=== PATIENT | female | born 1990 | race African-American/Black ===

== ENCOUNTER 2017-03-31 12:02 | Emergency (ER) | payer SELFPAY ==
[~2017-03-31] VITALS: Ht 182.9 cm; Wt 90.0 kg
[~2017-03-31 12:02] MED LIST: ERYT500 PO; LORT5TAB PO; Z.0.NO CURRENT MEDS
[2017-03-31 12:05] VITALS: BP 131/89; PULSE 100; RESP 14; TEMP 98.1; O2SAT 99
[2017-03-31] MEDS ORDERED: SODIUM CHLOR 0.9% 1000 ML INJ 1,000 ML IV SCH (12:21)
--- NOTE | 2017-03-31 12:21 | PD ---
HPI Chief Complaint: Back/ Neck Pain or Injury Time Seen by Provider: 12:12 Travel History International Travel<30 days: No Contact w/Intl Traveler<30days: No Traveled to known affect area: No History of Present Illness HPI 26-year-old female presents to the emergency Department with complaint of low back pain 4 days with worsening. That she woke up with the pain. Denies injury. Denies history of low back pain. Denies IV drug use or cancer. Denies fever, vomiting. Denies encopresis, incontinence, saddle anesthesias. Denies paresthesias, loss of sensation, decreased range of motion, decreased strength to bilateral lower extremities. Denies radiation of pain. Pain is worse with sitting and movement. Better with standing. Rates pain 10/10. No known relieving factors. Has not taken any medication or tried any treatments to alleviate her symptoms. Has a primary care provider but does not know the name. Denies significant past medical history. Allergies to penicillin. Has no other medical complaints. No other modifying factors or associated signs and symptoms. PFSH Past Medical History Medical History: Denies Significant Hx Asthma: Yes (HAS NOT HAD AN EXACERBATION SINCE HS) Diminished Hearing: No ?: Not LMP: 04/07 : 0 Past Surgical History Surgical History: No Previous Surgery Social History Alcohol Use: No Tobacco Use: Yes (1 PPD X 7 YRS) Substance Use: No Allergies-Medications (Allergen,Severity, Reaction): Coded Allergies: penicillin G (Unverified Allergy, Severe, CHILDHOOD , DOESNT REMEMBER, 01/05) Reported Meds & Prescriptions Reported Meds & Active Scripts Active Lortab 5/500 (Acetaminophen/Hydrocodone Bitart) 5 Mg/500 Mg Tab 1 Tab PO Q6HPRN FOR PAIN William-Tab (Erythromycin) 500 Mg Tabec 500 Mg PO QID 10 Days Reported No Current Meds (Miscellaneous Medication) Misc Review of Systems Except as stated in HPI: all other systems reviewed are Neg Physical Exam Narrative GENERAL: Well-nourished, well-developed black female patient, in no acute distress; afebrile, nontoxic-appearing; appears painful, crying and became diaphoretic during physical exam SKIN: Warm and dry. HEAD: Atraumatic. Normocephalic. EYES: Pupils equal and round. No scleral icterus. No injection or drainage. ENT: Mucosa pink and moist. Airway patent. NECK: Trachea midline. CARDIOVASCULAR: Regular rate. RESPIRATORY: No accessory muscle use. GASTROINTESTINAL: Obese. MUSCULOSKELETAL: Bilateral lower extremities supple and non-tense with 2+ pedal pulses and sensory intact; with full range of motion and 5/5 strength. 2 + DTRs bilaterally. Active dorsiflexion and extension of bilateral feet. Unable to assess straight leg raise test; patient crying and so she is in too much pain. Ambulatory in room with normal gait. Sitting up in bed at 90. No obvious deformities. No clubbing. No cyanosis. No edema. BACK: Midline point tenderness on palpation of the lumbar and thoracic spine. Tenderness on palpation of bilateral lumbar paraspinal and iliosacral area. No obvious deformities. NEUROLOGICAL: Awake and alert. Oriented 3. No obvious cranial nerve deficits. Motor grossly within normal limits. Normal speech. Moves all extremities. 5/5 strength to all extremities. Sensory intact. PSYCHIATRIC: Appropriate mood and affect; insight and judgment normal. Data Data Last Documented VS Vital Signs Date Time Temp Pulse Resp B/P (MAP) Pulse Ox O2 Delivery O2 Flow Rate FiO2 03/31/17 12:05 98.1 100 14 131/89 (103) 99 Orders Orders Mri L Spine W&W/O Contrast (03/31/17 ) Mri T Spine W & W/O Contrast (03/31/17 ) Lorazepam Inj (Ativan Inj) (03/31/17 12:30) Morphine Inj (Morphine Inj) (03/31/17 12:30) Basic Metabolic Panel (Bmp) (03/31/17 12:21) Complete Blood Count With Diff (03/31/17 12:21) Urinalysis - C+S If Indicated (03/31/17 12:21) Iv Access Insert/Monitor (03/31/17 12:21) Sodium Chlor 0.9% 1000 Ml Inj (Ns 1000 M (03/31/17 12:21) Sodium Chloride 0.9% Flush (Ns Flush) (03/31/17 12:30) Ed Urine Pregnancytest Poc (03/31/17 12:30) Ondansetron Inj (Zofran Inj) (03/31/17 13:15) Gadodiamide Pf Inj (Omniscan Pf Inj) (03/31/17 14:17) Labs Laboratory Tests Test 03/31/17 12:40 White Blood Count 9.5 TH/MM3 Red Blood Count 4.64 MIL/MM3 Hemoglobin 14.2 GM/DL Hematocrit 41.8 % Mean Corpuscular Volume 90.2 FL Mean Corpuscular Hemoglobin 30.6 PG Mean Corpuscular Hemoglobin Concent 33.9 % Red Cell Distribution Width 14.6 % Platelet Count 346 TH/MM3 Mean Platelet Volume 7.2 FL Neutrophils (%) (Auto) 68.3 % Lymphocytes (%) (Auto) 23.4 % Monocytes (%) (Auto) 6.7 % Eosinophils (%) (Auto) 1.3 % Basophils (%) (Auto) 0.3 % Neutrophils # (Auto) 6.5 TH/MM3 Lymphocytes # (Auto) 2.2 TH/MM3 Monocytes # (Auto) 0.6 TH/MM3 Eosinophils # (Auto) 0.1 TH/MM3 Basophils # (Auto) 0.0 TH/MM3 CBC Comment DIFF FINAL Differential Comment Urine Color YELLOW Urine Turbidity HAZY Urine pH 6.5 Urine Specific [place] 1.032 Urine Protein 30 mg/dL Urine Glucose (UA) NEG mg/dL Urine Ketones NEG mg/dL Urine Occult Blood NEG Urine Nitrite NEG Urine Bilirubin NEG Urine Urobilinogen 2.0 MG/DL Urine Leukocyte Esterase NEG Urine RBC 1 /hpf Urine WBC 1 /hpf Urine Squamous Epithelial Cells 7 /hpf Urine Amorphous Sediment OCC Urine Mucus MOD /lpf Microscopic Urinalysis Comment CULT NOT INDICATED Blood Urea Nitrogen 9 MG/DL Creatinine 1.01 MG/DL Random Glucose 96 MG/DL Calcium Level 8.7 MG/DL Sodium Level 139 MEQ/L Potassium Level 4.0 MEQ/L Chloride Level 106 MEQ/L Carbon Dioxide Level 25.7 MEQ/L Anion Gap 7 MEQ/L Estimat Glomerular Filtration Rate 79 ML/MIN [facility] Medical Decision Making Medical Screen Exam Complete: Yes Emergency Medical Condition: Yes Medical Record Reviewed: Yes Differential Diagnosis Spinal abscess, low back pain, thoracic back pain, muscle spasm, sciatica Narrative Course 26-year-old female with low back pain. Patient has severe pain on exam. She is crying and became diaphoretic during exam. She denies IV drug use or cancer. Denies encopresis, incontinence, saddle anesthesias. Neuro exam is unremarkable. I asked Dr. Stewart to evaluate the patient. 1225: Dr. Oeters evaluated that patient and recommends MRI of the T and L- spine. MRI of thoracic and lumbar spine ordered. IV, normal saline bolus, Ativan, morphine, urinalysis, UPT ordered. 1321: CBC, BMP unremarkable. Urinalysis without signs of infection. 1513: MRI concluded: Thoracic Spine MRI 03/31/17 0000 Signed Impressions: Service Date/Time: Friday, March 31, 2017 13:54 - CONCLUSION: Degenerative disc disease narrowed desiccated T67 and T10-11. Small right paracentral disc protrusion at T. 6/7. Otherwise negative Mateo Brito MD Lumbar Spine MRI 03/31/17 0000 Signed Impressions: Service Date/Time: Friday, March 31, 2017 13:54 - CONCLUSION: Degenerative disc disease L5-S1 with minimal central disc protrusion and annular tear. Small 6 mm fluid collection on the right L4-5 posterior to the facet suggesting synovial cyst. Otherwise negative examination with no abnormality of enhancement. Mateo Brito MD Patient would have been provided copies of her MRI reports that she left prior to my giving her the results and copies. She left without discharge instructions, prescriptions, and follow up instructions. Diagnosis Primary Impression: Degenerative disc disease, lumbar Additional Impression: Degenerative disc disease, thoracic Referrals: Seth Gaines MD, Brittney Lewis MD [facility] Neurosurgeon Primary Care Physician Patient Instructions: Degenerative Disc Disease (ED), General Instructions Additional Instructions: Tylenol or ibuprofen as directed and as needed for pain Robaxin as prescribed and as needed for muscle spasms Heating pad and/or ice to affected area to reduce pain Avoid aggravating activities; increase activity as tolerated Follow-up with primary care provider Return to emergency department immediately with worsening of symptoms Med/Other Pt SpecificInfo: Other (left prior to prescriptions being provided ) Disposition: 01 DISCHARGE HOME Condition: Stable Veronica Bolden Mar 31, 2017 12:21
[2017-03-31] MEDS ORDERED: LORazepam 2 MG/ML VIAL IV PUSH ONE (12:30)
[2017-03-31] MEDS ORDERED: SODIUM CHLORIDE 0.9% FLUSH 10 ML FLUSH IV FLUSH PRN (12:30)
[2017-03-31] MEDS ORDERED: MORPHINE SULFATE 4 MG/ML INJ IV PUSH ONE (12:30)
--- NOTE | 2017-03-31 12:49 | PD ---
Physical Exam Date Seen by Provider: Mar 31, 2017 Time Seen by Provider: 12:15 Narrative This patient presents with the acute onset of mid to low back pain. She denies any history of IV drug abuse. She has not been running any fever. She has no distal neurological complaints such as saddle anesthesia or leg weakness/ numbness. Data Data Last Documented VS Vital Signs Date Time Temp Pulse Resp B/P (MAP) Pulse Ox O2 Delivery O2 Flow Rate FiO2 03/31/17 12:05 98.1 100 14 131/89 (103) 99 Orders Orders Mri L Spine W&W/O Contrast (03/31/17 ) Mri T Spine W & W/O Contrast (03/31/17 ) Lorazepam Inj (Ativan Inj) (03/31/17 12:30) Morphine Inj (Morphine Inj) (03/31/17 12:30) Basic Metabolic Panel (Bmp) (03/31/17 12:21) Complete Blood Count With Diff (03/31/17 12:21) Urinalysis - C+S If Indicated (03/31/17 12:21) Iv Access Insert/Monitor (03/31/17 12:21) Sodium Chlor 0.9% 1000 Ml Inj (Ns 1000 M (03/31/17 12:21) Sodium Chloride 0.9% Flush (Ns Flush) (03/31/17 12:30) Ed Urine Pregnancytest Poc (03/31/17 12:30) MDM Supervised Visit with JUAN JOSE: Yes Narrative Course I, Dr. Stewart, have reviewed the advance practice practitioner's documentation and am in agreement, met with the patient face to face, made the diagnosis, and the medical decision making was done by me. *My assessment and Findings: The patient is standing up in the room with her arms around her significant other's neck crying. She has diffuse tenderness to percussion in the back from the lower T-spine down to about the sacrum. Please see Veronica Bolden NP's note for results of laboratory and radiographic evaluation, ED course, final diagnosis and disposition Betzy Stewart MD Mar 31, 2017 12:49
[2017-03-31 13:00] LABS: AMORPHOUS SEDIMENT, URINE OCC; BILIRUBIN, URINE NEG (NEG); BLOOD, URINE NEG (NEG); GLUCOSE,URINE NEG (NEG); KETONE, URINE NEG (NEG); MUCUS URINE MOD /lpf (OCC); NITRITE,URINE NEG (NEG); PH, URINE 6.5 (5.0-8.5); SQUAMOUS EPITHELIAL CELL URINE 7 /hpf (0-5); URINE COLOR YELLOW (YELLW/STRAW); URINE LEUKOCYTE ESTERASE NEG (NEG)
[2017-03-31 13:09] LABS: AUTOMATED NEUTROPHIL # 6.5 TH/MM3 (1.8-7.7); BASOPHIL % 0.3 % (0.0-2.0); EOSINOPHIL # 0.1 TH/MM3 (0-0.4); EOSINOPHIL % 1.3 % (0.0-4.0); HEMATOCRIT 41.8 % (35.0-46.0); HEMOGLOBIN 14.2 GM/DL (11.6-15.3); LYMPH % 23.4 % (9.0-44.0); LYMPHOCYTE # 2.2 TH/MM3 (1.0-4.8); MEAN CELL VOLUME 90.2 FL (80.0-100.0); MEAN CORPUSCULAR HEMOGLOBIN 30.6 PG (27.0-34.0); MEAN CORPUSCULAR HGB CONC 33.9 % (32.0-36.0); MEAN PLATELET VOLUME 7.2 FL (7.0-11.0); MONO % 6.7 % (0.0-8.0); MONOCYTE # 0.6 TH/MM3 (0-0.9); NEUT % 68.3 % (16.0-70.0); PLATELET COUNT 346 TH/MM3 (150-450); RED BLOOD COUNT 4.64 MIL/MM3 (4.00-5.30); RED CELL DISTRIBUTION WIDTH 14.6 % (11.6-17.2); WHITE BLOOD COUNT 9.5 TH/MM3 (4.0-11.0)
[2017-03-31] MEDS ORDERED: ONDANSETRON HCL 4 MG/2 ML VIAL IV PUSH ONE (13:15)
[2017-03-31 13:17] LABS: BICARBONATE 25.7 MEQ/L (21.0-32.0); CALCIUM 8.7 MG/DL (8.5-10.1); CREATININE 1.01 MG/DL (0.50-1.00)
[2017-03-31] MEDS ORDERED: GADODIAMIDE PF 287 MG/ML 20 ML VIAL (for RAD MRI) IVCONTRAST ONE (14:17)
--- NOTE | 2017-03-31 14:55 | RADRPT ---
EXAM DATE/TIME: 03/31/2017 13:54 [facility] COMPARISON: No previous studies available for comparison. INDICATIONS : Abscess. Severe mid-low back pain without injury. CONTRAST: 20 cc Omniscan (gadodiamide) IV MEDICAL HISTORY : None. SURGICAL HISTORY : None. ENCOUNTER: Initial ACUITY: 4-6 days PAIN SCORE: 7/10 LOCATION: [facility] TECHNIQUE: Multiplanar multisequence MRI of the lumbar spine was performed with and without contrast. FINDINGS: The most caudal appearing lumbar vertebra is numbered as L5. VERTEBRAE: Homogeneous signal. Normal alignment. There is a small 6 mm fluid collection posterior to the right of the facet of L3 to 4 determine without enhancement which could represent a synovial cyst. CONUS: Normal level and configuration. POST CONTRAST: No abnormal areas of contrast enhancement are seen. T12-L1: The thecal sac has a normal diameter. No evidence of disc bulge or protrusion. The neural foramina are patent bilaterally. L1-L2: The thecal sac has a normal diameter. No evidence of disc bulge or protrusion. The neural foramina are patent bilaterally. L2-L3: The thecal sac has a normal diameter. No evidence of disc bulge or protrusion. The neural foramina are patent bilaterally. L3-L4: The thecal sac has a normal diameter. No evidence of disc bulge or protrusion. The neural foramina are patent bilaterally. L4-L5: The thecal sac has a normal diameter. No evidence of disc bulge or protrusion. The neural foramina are patent bilaterally. L5-S1: The disc space is mildly desiccated and narrowed with minimal central protrusion into the anterior ep idural fat plane and probable angular tear with increased signal intensity on T2-weighted imaging. CONCLUSION: Degenerative disc disease L5-S1 with minimal central disc protrusion and annular tear. Small 6 mm fluid collection on the right L4-5 posterior to th e facet suggesting synovial cyst. Otherwise negative examination with no abnormality of enhance ment. Mateo Brito MD on March 31, 2017 at 14:48 Board Certified Radiologist. This report was verified electronically.
--- NOTE | 2017-03-31 15:03 | RADRPT ---
EXAM DATE/TIME: 03/31/2017 13:54 [facility] COMPARISON: No previous studies available for comparison. INDICATIONS : Abscess. Severe mid-low back pain without injury. CONTRAST: 20 cc Omniscan (gadodiamide) IV MEDICAL HISTORY : None. SURGICAL HISTORY : None. ENCOUNTER: Initial ACUITY: 4-6 days PAIN SCORE: 7/10 LOCATION: Paraspinal TECHNIQUE: Multiplanar multisequence MRI of the thoracic spine was performed. FINDINGS: VERTEBRA: Normal vertebral body height. Homogeneous marrow signal. ALIGNMENT: Normal. CORD: Normal position and configuration. POST CONTRAST: No abnormal areas of contrast enhancement seen. T1-T2: Normal. T2-T3: The thecal sac has a normal diameter. No evidence of disc bulge or protrusion. T3-T4: The thecal sac has a normal diameter. No evidence of disc bulge or protrusion. T4-T5: The thecal sac has a normal diameter. No evidence of disc bulge or protrusion. T5-T6: The thecal sac has a normal diameter. No evidence of disc bulge or protrusion. T6-T7: Disc space is desiccated degenerative in nature with a small right paracentral disc protrusion. T7-T8: The thecal sac has a normal diameter. No evidence of disc bulge or protrusion. T8-T9: The thecal sac has a normal diameter. No evidence of disc bulge or protrusion. T9-T10: The thecal sac has a normal diameter. No evidence of disc bulge or protrusion. T10-T11: Disc spaces degenerative with narrowing and desiccation T11-T12: The thecal sac has a normal diameter. No evidence of disc bulge or protrusion. T12-L1: The thecal sac has a normal diameter. No evidence of disc bulge or protrusion. CONCLUSION: Degenerative disc disease narrowed desiccated T67 and T10-11. Small right paracentral disc protrusion at T. 6/7. Otherwise negative Mateo Brito MD on March 31, 2017 at 14:57 Board Certified Radiologist. This report was verified electronically.
[2017-04-01] MEDS ORDERED: PRED10PA PO (15:24)
[2017-04-01] MEDS ORDERED: NORC5TAB PO (15:24)
== END 2017-03-31 15:30 | disposition home or self-care (01) ==
LOC: NEPD 12:02
DX: M54.5 Low back pain (principal); M51.36 Other intervertebral disc degeneration, lumbar region; M51.34 Other intervertebral disc degeneration, thoracic region; J45.909 Unspecified asthma, uncomplicated; F17.200 Nicotine dependence, unspecified, uncomplicated; Z88.0 Allergy status to penicillin; Z79.899 Other long term (current) drug therapy
CPT/HCPCS: 72157; 72158; 80048; 81001; 84703; 85025; 96374; 96375; 99284; A9579; J2060; J2270; J2405; J7030

== ENCOUNTER 2017-04-01 12:53 | Emergency (ER) | payer SELFPAY ==
[~2017-04-01] VITALS: Ht 182.9 cm; Wt 115.0 kg
[2017-04-01 12:57] VITALS: BP 127/67; PULSE 100; RESP 16; TEMP 97.6; O2SAT 97
[2017-04-01] MEDS ORDERED: methylPREDNISolone SOD SUCC 40 MG/1 ML VIAL IM SCH (14:15)
[2017-04-01] MEDS ORDERED: ACETAMINOPHEN/HYDROcodone 325 MG/5 MG TAB PO ONE (14:15)
--- NOTE | 2017-04-01 14:33 | PD ---
HPI Chief Complaint: Back/ Neck Pain or Injury Time Seen by Provider: 13:44 Travel History International Travel<30 days: No Contact w/Intl Traveler<30days: No Traveled to known affect area: No History of Present Illness HPI 26-year-old female presents to the ED for evaluation of 5 day history of middle and lower back pain. Gradual onset, worsened by range of motion. Somewhat improved by standing. Patient can identify no acute injury. Patient denies fever, chills, N/V, saddle anesthesia, fecal or urinary incontinence, radiation of the pain, numbness, tingling, weakness, limitations to range of motion of the extremities. She was seen in the ED yesterday but left before her exam was complete. [facility] Past Medical History Medical History: Denies Significant Hx Asthma: Yes (HAS NOT HAD AN EXACERBATION SINCE HS) Diminished Hearing: No Immunizations Current: Yes Tetanus Vaccination: Unknown Influenza Vaccination: No ?: Not : 0 Past Surgical History Surgical History: No Previous Surgery Social History Alcohol Use: No Tobacco Use: Yes (1 PPD X 7 YRS) Substance Use: No Allergies-Medications (Allergen,Severity, Reaction): Coded Allergies: penicillin G (Unverified Allergy, Severe, CHILDHOOD , DOESNT REMEMBER, 02/04) Reported Meds & Prescriptions Reported Meds & Active Scripts Active Prednisone (21) 10 mg tab Dose Pack (Prednisone) 10 Mg Pack 10 Mg PO DIRECTED [place] (Hydrocodone-Acetaminophen) 5 Mg-325 Mg Tab 1 Tab PO Q6H PRN Review of Systems ROS Limitations: Uncooperative Except as stated in HPI: all other systems reviewed are Neg Physical Exam Exam Limitations: Uncooperative Narrative GENERAL: Well-nourished, well-developed female, tearful, standing beside the stretcher. SKIN: Focused skin assessment warm/dry. HEAD: Normocephalic. EYES: No scleral icterus. No injection or drainage. NECK: Supple, trachea midline. No JVD or lymphadenopathy. No meningeal signs. CARDIOVASCULAR: Regular rate and rhythm without murmurs, gallops, or rubs. RESPIRATORY: Breath sounds clear and equal bilaterally. No accessory muscle use. GASTROINTESTINAL: Abdomen soft, non-tender, nondistended. MUSCULOSKELETAL: No cyanosis, or edema. 5/5 strength in all muscle groups in the lower extremities bilaterally. BACK: Tender in the midline anterior out the entire back. No palpable spasm. Data Data Last Documented VS Vital Signs Date Time Temp Pulse Resp B/P (MAP) Pulse Ox O2 Delivery O2 Flow Rate FiO2 04/01/17 12:57 97.6 100 16 127/67 (87) 97 Orders Orders Methylprednisolone So Succ Inj (Solumedr (04/01/17 14:15) Acetamin-Hydrocod 325-5 Mg ([place] 5-325 (04/01/17 14:15) Ed Discharge Order (04/01/17 15:25) [facility] Medical Decision Making Medical Screen Exam Complete: Yes Emergency Medical Condition: Yes Differential Diagnosis Acute on chronic back pain versus degenerative disc disease versus muscle spasm versus musculoskeletal pain versus other Narrative Course 26-year-old female presents to the ED for evaluation of 5 day history of middle and lower back pain. Patient denies fever, chills, N/V, saddle anesthesia, fecal or urinary incontinence, radiation of the pain, numbness, tingling, weakness, limitations to range of motion of the extremities. She was seen in the ED yesterday but left before her exam was complete. She is uncooperative to history taking and exam today, which is suspect is secondary to pain. Vitals reviewed. Physical exam reveals tenderness to palpation over the entire surface of the back. No meningeal signs of the neck. 5/5 strength in the bilateral lower extremities. I reviewed the patient's MRI reports from earlier this week. She was administered 40 mg Solu-Medrol and 5 mg [place]. MRI lumbar spine with and without contrast performed 03/31: Degenerative disc disease L5-S1 with minimal central disc protrusion and annular tear. Small 6mm fluid collection on the right L4 5 posterior to the facet synovial cyst, otherwise negative. MRI thoracic spine with and without contrast performed 03/31/17:0 disc disease narrowed desiccated T6 7 and T10 11. Small right paracentral disc protrusion at T6 7. Otherwise negative I discussed the results of the workup with the patient. On recheck she reports some improvement of her symptoms but not resolution. She states that she wants to leave. I provided her with copies of her MRI reports and a short course of prednisone and [place]. She is instructed to return to normal, gentle activity as tolerated, follow-up with Dr. Weinstein. We discussed reasons to return to the ED. She is stable and discharged home. Diagnosis Primary Impression: Degenerative disc disease, lumbar Additional Impression: Degenerative disc disease, thoracic Referrals: Lonny Weinstein MD Patient Instructions: Degenerative Disc Disease (ED), General Instructions Additional Instructions: Return to normal, gentle activities as tolerated. Take medications as prescribed. Do not drive or taking narcotic pain medications as they may cause drowsiness. Follow-up with Dr. Weinstein as discussed. Return to the ED for any urgent or emergent medical condition. Med/Other Pt SpecificInfo: Prescription(s) given Scripts Prednisone (21) 10 mg tab Dose Pack (Prednisone (21) 10 mg tab Dose Pack) 10 Mg Pack 10 MG PO DIRECTED for Inflammation, #1 DSPK 0 Refills Prov: Betzy Stewart MD 04/01/17 Hydrocodone-Acetaminophen ([place]) 5 Mg-325 Mg Tab 1 TAB PO Q6H Y for PAIN, #14 TAB 0 Refills Prov: Betzy Stewart MD 04/01/17 Disposition: 01 DISCHARGE HOME Condition: Stable Saritha Higgins Apr 01, 2017 14:33
[2017-04-01] MEDS ORDERED: PRED10PA PO (15:24)
[2017-04-01] MEDS ORDERED: NORC5TAB PO (15:24)
== END 2017-04-01 15:35 | disposition home or self-care (01) ==
LOC: PHED 12:53 → PHEFT 15:35
DX: M51.36 Other intervertebral disc degeneration, lumbar region (principal); M51.34 Other intervertebral disc degeneration, thoracic region; F17.200 Nicotine dependence, unspecified, uncomplicated
CPT/HCPCS: 96372; 99283; J2920